=== PATIENT | male | born 1960 | race Caucasian/White ===

== ENCOUNTER → 2018-07-14 | Outpatient (CLI) | payer OTHER ==
[~2018-07-14] MED LIST: GADOBUTROL 10 ML VIAL IVP ONE
== END ==
LOC: FIMAGING 16:59
PROVIDERS: ATTEND Internal Medicine
DX: M51.34 Other intervertebral disc degeneration, thoracic region (principal); M46.94 Unspecified inflammatory spondylopathy, thoracic region
CPT/HCPCS: A9585